=== PATIENT | male | born 1985 | race Caucasian/White ===

== ENCOUNTER 2018-05-30 11:45 | Inpatient (IN) ==
--- NOTE | 2018-05-30 12:11 | ED ---
HPI General Chief Complaint: Overdose Stated Complaint: Poss OD / Psych eval / DBPD Time Seen by Provider: 05/30/18 11:50 History of Present Illness HPI Narrative: This patient is brought in under police Sanabria act. He presumably took an intentional overdose of Seroquel. I am told that he posted an Internet picture of himself holding the bottle of Seroquel and making suicidal overtones. His found him later minimally responsive. She called paramedics. He arrives very sedated. He is not able to provide any useful history or review of systems. Related Data Home Medications Medication Instructions Recorded Confirmed quetiapine [Seroquel] 200 mg PO BID 05/30/18 05/30/18 Allergies Allergy/AdvReac Type Severity Reaction Status Date / Time ketorolac [From Toradol] Allergy Anaphylaxis Verified 05/30/18 11:52 Review of Systems ROS Unobtainable ROS Unobtainable: unobtainable due to mental status PMFSH Social History Social History Substance History: Unable to Obtain Smoking Status: Unknown if ever smoked How Often Do You Have a Drink Containing Alcohol: Unable to Obtain Recent Travel in [facility] within the Last 8 Weeks: No Recent Out of Country Travel within the Last 8 Weeks: No Immunization History Tetanus Immunization: Unable to Assess Hx Influenza Vaccine This Season: Unable to Assess Exam Narrative Exam Narrative: GENERAL: Well-nourished, well-developed patient who is sedated and has decreased responsiveness . SKIN: Focused skin assessment reveals no rash and nodules. Skin is Warm and dry. HEAD: Atraumatic. Normocephalic. EYES: Pupils equal and round. No scleral icterus. No injection or drainage. ENT: No nasal bleeding or discharge. Mucous membranes pink and moist. NECK: Trachea midline. No JVD. CARDIOVASCULAR: Regular rate and rhythm. No murmur appreciated. RESPIRATORY: No accessory muscle use. Clear to auscultation. Breath sounds equal bilaterally. GASTROINTESTINAL: Abdomen soft, non-tender, nondistended. Hepatic and splenic margins not palpable. MUSCULOSKELETAL: No obvious deformities. No clubbing. No cyanosis. No edema. NEUROLOGICAL: Very obtunded. He has a normal gag reflex. He appears to be controlling his airway fine. Impossible to assess motor strength or sensation given his limited participation. He does localize to pain stimuli. PSYCHIATRIC: Impossible to currently assess his mood and affect; insight and judgment poor Course Initial Documented Vital Signs Temperature 98.1 F 05/30/18 11:46 Pulse Rate 80 05/30/18 11:46 Respiratory Rate 12 05/30/18 11:46 Blood Pressure 127/81 05/30/18 11:46 Pulse Oximetry 100 05/30/18 11:46 Last Documented Vital Signs Temperature 98.1 F 05/30/18 11:46 Pulse Rate 66 05/30/18 13:24 Respiratory Rate 14 05/30/18 13:24 Blood Pressure 117/66 05/30/18 13:24 Pulse Oximetry 100 05/30/18 13:24 Critical Care Time Critical Care Time: Yes Total Critical Care Time: 37 Attestation: Aggregate critical care time was 37 minutes. Time to perform other separately billable procedures was not included in the critical care time. My time did not include minutes spent treating any other patients simultaneously or on activities that did not directly contribute to the patient's treatment. The services I provided to this patient were to treat and/or prevent clinically significant deterioration that could result in: Loss of airway, cardiopulmonary arrest, hypoxemic brain injury I provided critical care services requiring my management, as noted below: Chart data review, documentation time, medication orders and management, vital sign assessments/reviewing monitor data, ordering and reviewing lab tests, ordering and interpreting/reviewing x-rays and diagnostic studies, care of the patient and discussion of the patient with the admitting physicians. Medical Decision Making MDM Narrative Medical decision making narrative: IV placed 2 Blood and urine studies sent. Garsia placed. Laboratory monitoring reveals sinus rhythm without ectopy I reviewed his EKG which is normal Vitals are normal but GCS is 10. He has a good gag reflex and is controlling his airway. He is not having any respiratory depression. Saturations are 100% on room air. I am going to closely observe him with frequent rechecks. If his GCS does decrease will consider intubation to protect his airway but at this time it seems okay. He is under Sanabria act so will need psychiatric consultation in the hospital. I am not going to order psych screen now as he clearly cannot provide any useful psychiatric information to the screener. Brain CT is negative I am presuming Seroquel overdose but it could have been multidrug or anything else. There is nobody here to provide any further information. Lab studies are reasonably normal other than mild anemia. Electrolytes are normal. ABG shows no hypercarbia. He is not having respiratory depression. GCS persistent at 10 will require intensive care monitoring but at this point does not need to be intubated. Tylenol and aspirin and alcohol and toxic range and all negative. I reviewed the case in detail with calender wind up tender who will admit Medical Screen Exam Complete: Yes Emergency Medical Condition: Yes Differential Diagnosis Differential Diagnosis: Intentional overdose, suicidal ideation, Tylenol toxicity Medical Records Medical records reviewed: Yes I reviewed the patient's medical records. Lab Data Lab results reviewed: Yes I reviewed the patient's lab results. Result diagrams: 05/30/18 12:03 05/30/18 12:03 Lab Results 05/30/18 05/30/18 05/30/18 Range/Units 12:03 12:03 12:03 WBC 5.3 (4.0-11.0) th/mm3 RBC 3.72 L (4.50-5.90) mil/mm3 Hgb 11.5 L (13.0-17.0) gm/dL Hct 34.6 L (39.0-51.0) % MCV 93.3 (80.0-100.0) fL MCH 30.9 (27.0-34.0) pg MCHC 33.1 (32.0-36.0) % RDW 13.5 (11.6-17.2) % Plt Count 317 (150-450) th/mm3 MPV 10.0 (7.0-11.0) fL Neut % (Auto) 48.3 (16.0-70.0) % Lymph % (Auto) 35.0 (9.0-44.0) % [place] % (Auto) 11.2 H (0.0-8.0) % Eos % (Auto) 4.6 H (0.0-4.0) % Baso % (Auto) 0.9 (0.0-2.0) % Neut # (Auto) 2.5 (1.8-7.7) th/mm3 Lymph # (Auto) 1.8 (1.0-4.8) th/mm3 [place] # (Auto) 0.6 (0.0-0.9) th/mm3 Eos # (Auto) 0.2 (0.0-0.4) th/mm3 Baso # (Auto) 0.0 (0.0-0.2) th/mm3 WBC Differential . Differential Comment Auto diff final Puncture Site Patient Temperature O2 Saturation (90-100) % ABG pH (7.380-7.420) ABG pCO2 (38-42) mmHg ABG pO2 (61-120) mmHg ABG HCO3 (22-26) mmol/L ABG O2 Content (12.0-20.0) Vol % ABG Base Excess (-2-2) mmol/L ABG Methemoglobin (0-2) % Andres Test Hemoglobin (12.0-16.0) G/DL Carboxyhemoglobin (0-4) % Inspired O2 % Critical Value Sodium 144 (136-145) meq/L Potassium 3.6 (3.5-5.1) meq/L Chloride 109 H (98-107) meq/L Carbon Dioxide 25.6 (21.0-32.0) meq/L Anion Gap 9 (5-15) meq/L BUN 12 (7-18) mg/dL Creatinine 1.13 (0.60-1.30) mg/dL Estimated GFR 75 L (>89) mL/min Random Glucose 101 (74-106) mg/dL Calcium 8.5 (8.5-10.1) mg/dL Total Bilirubin 0.6 (0.2-1.0) mg/dL AST 34 (15-37) U/L ALT 32 (12-78) U/L Alkaline Phosphatase 83 (45-117) U/L Total Protein 7.5 (6.4-8.2) g/dL Albumin 3.4 (3.4-5.0) g/dL Salicylates Less than 1.7 L (2.8-20.0) mg/dL Acetaminophen Less than 2.0 L (10.0-30.0) mcg/mL Serum Alcohol Less than 3 (0-5) mg/dL 05/30/18 Range/Units 12:37 WBC (4.0-11.0) th/mm3 RBC (4.50-5.90) mil/mm3 Hgb (13.0-17.0) gm/dL Hct (39.0-51.0) % MCV (80.0-100.0) fL MCH (27.0-34.0) pg MCHC (32.0-36.0) % RDW (11.6-17.2) % Plt Count (150-450) th/mm3 MPV (7.0-11.0) fL Neut % (Auto) (16.0-70.0) % Lymph % (Auto) (9.0-44.0) % [place] % (Auto) (0.0-8.0) % Eos % (Auto) (0.0-4.0) % Baso % (Auto) (0.0-2.0) % Neut # (Auto) (1.8-7.7) th/mm3 Lymph # (Auto) (1.0-4.8) th/mm3 [place] # (Auto) (0.0-0.9) th/mm3 Eos # (Auto) (0.0-0.4) th/mm3 Baso # (Auto) (0.0-0.2) th/mm3 WBC Differential Differential Comment Puncture Site Left radial Patient Temperature 98.6 O2 Saturation 95 (90-100) % ABG pH 7.43 H (7.380-7.420) ABG pCO2 37 L (38-42) mmHg ABG pO2 107 (61-120) mmHg ABG HCO3 24 (22-26) mmol/L ABG O2 Content 15.4 (12.0-20.0) Vol % ABG Base Excess -0.2 (-2-2) mmol/L ABG Methemoglobin 0.9 (0-2) % Andres Test Present Hemoglobin 11.4 L (12.0-16.0) G/DL Carboxyhemoglobin 2.1 (0-4) % Inspired O2 21 % Critical Value No Sodium (136-145) meq/L Potassium (3.5-5.1) meq/L Chloride (98-107) meq/L Carbon Dioxide (21.0-32.0) meq/L Anion Gap (5-15) meq/L BUN (7-18) mg/dL Creatinine (0.60-1.30) mg/dL Estimated GFR (>89) mL/min Random Glucose (74-106) mg/dL Calcium (8.5-10.1) mg/dL Total Bilirubin (0.2-1.0) mg/dL AST (15-37) U/L ALT (12-78) U/L Alkaline Phosphatase (45-117) U/L Total Protein (6.4-8.2) g/dL Albumin (3.4-5.0) g/dL Salicylates (2.8-20.0) mg/dL Acetaminophen (10.0-30.0) mcg/mL Serum Alcohol (0-5) mg/dL Imaging Data Attestation: I personally reviewed and interpreted this imaging study as follows : Radiologist's impression: Head CT 05/30/18 12:00 CONCLUSION: 1. Negative CT Head non contrast. . Discharge Plan Discharge Disposition Patient Disposition: 30 Still Patient Discharge Details Diagnosis: Drug overdose, Suicide attempt by drug ingestion Physicians Team ED Provider: Oneal Reyes Primary Care Provider: UNKNOWN, Rxs /Orders / Referrals /Forms Prescriptions: No Action quetiapine [Seroquel] 200 mg Tablet 200 mg PO BID RF: 0 Discharge Interventions Interventions: Vital Signs Last Done: 05/30/18 13:24 Status ED Status: With Doctor
[2018-05-30 12:16] LABS: Baso % (Auto) 0.9 % (0.0-2.0); Eos # (Auto) 0.2 th/mm3 (0.0-0.4); Eos % (Auto) 4.6 % (0.0-4.0); Hematocrit 34.6 % (39.0-51.0); Hemoglobin 11.5 gm/dL (13.0-17.0); Lymph # (Auto) 1.8 th/mm3 (1.0-4.8); Mean Corpuscular HGB Conc 33.1 % (32.0-36.0); Mean Corpuscular Hemoglobin 30.9 pg (27.0-34.0); Mean Corpuscular Volume 93.3 fL (80.0-100.0); Mono # (Auto) 0.6 th/mm3 (0.0-0.9); Mono % (Auto) 11.2 % (0.0-8.0); Neut # (Auto) 2.5 th/mm3 (1.8-7.7); Neut % (Auto) 48.3 % (16.0-70.0); Platelet Count 317 th/mm3 (150-450); Red Blood Count 3.72 mil/mm3 (4.50-5.90); Red Cell Distribution Width 13.5 % (11.6-17.2); White Blood Count 5.3 th/mm3 (4.0-11.0)
[2018-05-30 12:34] LABS: Alkaline Phosphatase 83 U/L (45-117); Total Protein 7.5 g/dL (6.4-8.2)
--- NOTE | 2018-05-30 12:36 | CT ---
EXAM DATE: 05/30/2018 12:32 PM EDT AGE/SEX: 33 years / Male INDICATIONS: Altered mental status. CLINICAL DATA: This is the patient's initial encounter. Patient reports that signs and symptoms have been present for 1 day and indicates a pain score of Nonresponsive. MEDICAL/SURGICAL HISTORY: None. None. RADIATION DOSE: 56.35 CTDI (mGy) COMPARISON: none. TECHNIQUE: CT of the head without contrast. Using automated exposure control and adjustment of the mA and/or kV according to patient size, radiation dose was kept as low as reasonably achievable to ob tain optimal diagnostic quality images. DICOM format image data is available electronically for revi ew and comparison. FINDINGS: Cerebrum: The ventricles are normal for age. No evidence of midline shift, mass lesion, hemorrhage or acute infarction. No extraaxial fluid collections are seen. Posterior Fossa: The cerebellum and brainstem are intact. The 4th ventricle is midline. The cerebe llopontine angle is unremarkable. Extracranial: The visualized portion of the orbits is intact. Skull: The calvaria is intact. No evidence of skull fracture. CONCLUSION: 1. Negative CT Head non contrast. . Electronically signed by: Bneji Allen MD 05/30/2018 12:35 PM EDT
[2018-05-30 12:46] LABS: ABG Base Excess -0.2 mmol/L (-2-2); ABG PCO2 37 mmHg (38-42); ABG PO2 107 mmHg (61-120)
[2018-05-30 13:10] LABS: Alanine Aminotransferase 32 U/L (12-78); Albumin 3.4 g/dL (3.4-5.0); Anion Gap 9 meq/L (5-15); Aspartate Aminotransferase 34 U/L (15-37); Blood Urea Nitrogen 12 mg/dL (7-18); Calcium 8.5 mg/dL (8.5-10.1); Carbon Dioxide 25.6 meq/L (21.0-32.0); Chloride 109 meq/L (98-107); Glomerular Filtration Rate 75 mL/min (>89); Glucose,Random 101 mg/dL (74-106); Sodium 144 meq/L (136-145)
[2018-05-30 13:11] LABS: Potassium 3.6 meq/L (3.5-5.1)
[2018-05-30] MEDS ORDERED: Bisacodyl 10 MG Supp RECTAL PRN (14:19)
[2018-05-30] MEDS ORDERED: Acetaminophen 325 MG Tablet PO PRN (14:19)
[2018-05-30] MEDS ORDERED: Dextrose 50% in Water 50 ML Vial IV.PUSH PRN (14:22)
[2018-05-30] MEDS ORDERED: Potassium Chlor 40 mEq Premix 40 MEQ/100 ML PIGGYBACK IV.SIG PRN ×2 (14:22)
[2018-05-30] MEDS ORDERED: Sodium Phosphate Inj 30 MMOL in Sodium Chlor 0.9% Inj 250 ML IV.SIG PRN (14:22)
[2018-05-30] MEDS ORDERED: Potassium Chloride 25 MEQ Effervescent Tablet PO PRN (14:22)
[2018-05-30] MEDS ORDERED: Potassium Phosphate Inj 30 MMOL in Sodium Chlor 0.9% Inj 250 ML IV.SIG PRN (14:22)
[2018-05-30] MEDS ORDERED: Magnesium Sulfate Inj 2 GM in Sodium Chlor 0.9% Inj 96 ML IV.SIG PRN (14:22)
[2018-05-30] MEDS ORDERED: Potassium Chlor 20 mEq Premix 20 MEQ/100 ML PIGGYBACK IV.SIG PRN ×2 (14:22)
[2018-05-30] MEDS ORDERED: Magnesium Sulfate Inj 4 GM in Sodium Chlor 0.9% Inj 92 ML IV.SIG PRN (14:22)
[2018-05-30] MEDS ORDERED: Magnesium Oxide 400 MG Tablet PO PRN (14:22)
[2018-05-30] MEDS ORDERED: Potassium Phosphate 500 MG Soluble Tablet PO PRN ×2 (14:22)
--- NOTE | 2018-05-30 14:45 | P.HPCC ---
History of Present Illness Service: Critical care medicine Primary Care Physician: UNKNOWN Chief Complaint: Suicide ideation/Quetiapine overdose History of Present Illness: This is a 33-year-old male. Date of admission 05/30/2018. Past medical history includes migraine headache, chronic low back pain/sciatica, history of benzodiazepine use and history of IV drug use 2008. He is brought in to [facility] ED under police [place] act. He presumably took an intentional overdose of Quetiapine. ED physician was told that he posted an Internet picture of himself holding the bottle of Seroquel and making suicidal overtones. His found him later minimally responsive. She called paramedics. He arrives very sedated. He is not able to provide any useful history or review of systems with a GCS of 10 CT brain revealed no acute intracranial findings. Patient has a gag and protecting airway. Based on laboratory essentially negative. Urine drug screen currently pending. We are asked to admit the patient observation. He is under [place] act and psychiatry consult when appropriate Review of Systems unobtainable due to mental status PMFSH - History History Provided By: Training Analyst / EMT - Medical History Medical History: Medical History (Last Updated 05/30/18 @ 14:42 by Ge Burton MD) Bipolar 1 disorder Chronic low back pain History of migraine headaches Schizo affective schizophrenia Surgical history unknown - Surgical History Surgical History: Surgical History (Last Updated 05/30/18 @ 14:42 by Ge Burton MD) Stress fracture, right finger(s), subsequent encounter for fracture with routine healing (Acute) - Family History Family History: Family History (Last Updated 05/30/18 @ 14:43 by Ge Burton MD) Other Unknown family medical history - Social History I have reviewed the patient's Social History: Yes - Tobacco History Smoking Status: Former smoker - Alcohol History How Often Do You Have a Drink Containing Alcohol: Unable to Obtain - Substance Use History Substance History: Unable to Obtain - Travel History Recent Travel in the [place] Within the Last 8 Weeks: No Recent Travel Out of the Country Within the Last 8 Weeks: No - Immunization History Tetanus Immunization: Unable to Assess Hx Influenza Vaccine This Season: Unable to Assess Medications and Allergies Active Medications: Active Medications Acetaminophen (Tylenol) 650 mg PO Q6H PRN PRN Reason: PAIN 1-10 AND/OR FEVER >101F Al Hydroxide/Mg Hydroxide (Milk Of Magnesia Liq) 30 ml PO Q12H PRN PRN Reason: Mild Constipation Albuterol (Duoneb Neb (Prn)) 1 ampul NEB Q2HR NEB PRN PRN Reason: WHEEZING Bisacodyl (Dulcolax Supp) 10 mg RECTAL DAILY PRN PRN Reason: SEVERE CONSITIPATION Chlorhexidine Gluconate (Chlorhexidine 2% Cloth) 3 pack TOPICAL DAILY@0400 DEMETRIA Stop: 06/05/18 03:59 Chlorhexidine Gluconate (Chlorhexidine 2% Cloth) 3 pack TOPICAL DAILY@0400 PRN PRN Reason: Extra cloth needed Stop: 06/05/18 03:59 Dextrose (D50w Vial) 50 ml IV.PUSH UNSCH PRN PRN Reason: PER HYPOGLYCEMIA PROTOCOL Enoxaparin Sodium (Lovenox Inj) 40 mg SQ Q24H DEMETRIA Glucagon (Glucagon Inj) 1 mg OTHER UNSCH PRN PRN Reason: for Hypoglycemia Protocol Potassium Chloride/Sodium Chloride (Ns + Kcl 20 Meq Inj) 1,000 mls @ 100 mls/ hr IV.CONT .Q10H DEMETRIA Magnesium Sulfate Inj 4 gm/ (Sodium Chloride) 100 mls @ 50 mls/hr IV.SIG UNSCH PRN PRN Reason: For Magnesium 0.9 - 1.1 mg/dL Magnesium Sulfate Inj 2 gm/ (Sodium Chloride) 100 mls @ 50 mls/hr IV.SIG UNSCH PRN PRN Reason: For Magnesium 1.2 - 1.6 mg/dL Potassium Chloride (Kcl 40 Meq Premix Inj) 40 meq in 100 mls @ 25 mls/hr IV.SIG Q2H PRN PRN Reason: For Potassium 2.8 - 3.2 mEq/L Potassium Chloride (Kcl 20 Meq Premix Inj) 20 meq in 100 mls @ 50 mls/hr IV.SIG Q2H PRN PRN Reason: For Potassium 3.3 - 3.5 mEq/L Potassium Chloride (Kcl 20 Meq Premix Inj) 20 meq in 100 mls @ 50 mls/hr IV.SIG Q2H PRN PRN Reason: For Potassium 2.8 - 3.2 mEq/L Potassium Phosphate 30 mmol/ (Sodium Chloride) 260 mls @ 42 mls/hr IV.SIG UNSCH PRN PRN Reason: SEE LABEL COMMENTS Sodium Phosphate 30 mmol/ (Sodium Chloride) 260 mls @ 42 mls/hr IV.SIG UNSCH PRN PRN Reason: For Phosphorus < 2.5 mg/dL Potassium Chloride (Kcl 40 Meq Premix Inj) 40 meq in 100 mls @ 25 mls/hr IV.SIG UNSCH PRN PRN Reason: For Potassium 3.3 - 3.5 mEq/L Insulin Aspart (Novolog Insulin Correctional Sugar Inj) 0 unit SQ Q6HR DEMETRIA; Protocol Lactulose (Lactulose Liq) 30 ml PO DAILY PRN PRN Reason: SEVERE CONSITIPATION Magnesium Oxide (Mag-Ox) 800 mg PO UNSCH PRN PRN Reason: For Magnesium 1.2 - 1.6 mg/dL Ondansetron HCl (Zofran Inj) 4 mg IV.PUSH Q6H PRN PRN Reason: NAUSEA OR VOMITING Pantoprazole Sodium (Protonix Inj) 40 mg IV.PUSH DAILY DEMETRIA Potassium Bicarb/Potassium Chloride (K-Lyte Cl Eff) 50 meq PO UNSCH PRN PRN Reason: For Potassium 3.3 - 3.5 mEq/L Potassium Phosphate (K-Phos Original) 2,000 mg PO Q4H PRN PRN Reason: Phosphorus Less Than 2.5 mg/dL Potassium Phosphate (K-Phos Original) 2,000 mg PO UNSCH PRN PRN Reason: SEE LABEL COMMENTS Senna/Docusate Sodium (Kim-Colace) 1 tab PO BID [facility] Sennosides (Senokot) 17.2 mg PO Q12H PRN PRN Reason: Moderate Constipation Sodium Chloride (Ns Flush) 2 ml IV.FLUSH BID DEMETRIA Sodium Chloride (Ns Flush) 2 ml IV.FLUSH UNSCH PRN PRN Reason: FLUSH AFTER USING IV ACCESS Allergies Allergy/AdvReac Type Severity Reaction Status Date / Time ketorolac [From Toradol] Allergy Anaphylaxis Verified 05/30/18 11:52 Home Medications Medication Instructions Recorded Confirmed Type quetiapine [Seroquel] 200 mg PO BID 05/30/18 05/30/18 History Results - Labs CBC & Chem 7: 05/30/18 12:03 05/30/18 12:03 Labs: Short CBC 05/30/18 Range/Units 12:03 WBC 5.3 (4.0-11.0) th/mm3 Hgb 11.5 L (13.0-17.0) gm/dL Hct 34.6 L (39.0-51.0) % Plt Count 317 (150-450) th/mm3 BMP 05/30/18 12:03 Sodium 144 Potassium 3.6 Chloride 109 H Carbon Dioxide 25.6 BUN 12 Creatinine 1.13 Calcium 8.5 Liver Function 05/30/18 Range/Units 12:03 Total Bilirubin 0.6 (0.2-1.0) mg/dL AST 34 (15-37) U/L ALT 32 (12-78) U/L Alkaline Phosphatase 83 (45-117) U/L Albumin 3.4 (3.4-5.0) g/dL - Imaging Impressions Head CT 05/30/18 12:00 CONCLUSION: 1. Negative CT Head non contrast. . Exam Vital signs: Vital Signs 05/30/18 11:46 05/30/18 11:54 05/30/18 12:14 Temperature 98.1 F Pulse Rate 80 80 Respiratory Rate 12 12 Blood Pressure 127/81 Pulse Oximetry 100 98 05/30/18 13:24 05/30/18 14:26 Temperature Pulse Rate 66 Respiratory Rate 14 Blood Pressure 117/66 Pulse Oximetry 100 100 Intake & Output 05/29/18 05/30/18 05/30/18 18:59 06:59 18:59 Weight 54.431 kg - Constitutional no acute distress - Routine HEENT Exam Head: Present: normocephalic, atraumatic Eye: Present: EOMI, PERRL ENT: Present: mucous membranes moist - Routine Neck Exam Present: supple. Absent: JVD, carotid bruit - Routine Chest/Breast/Axilla Exam Chest wall: Absent: tenderness Breast: Absent: tenderness Axillae: Absent: lymphadenopathy - Routine Respiratory Exam Present: CTA bilaterally. Absent: rhonchi, stridor, wheezes, crackles - Routine Cardiovascular Exam Present: RRR, S1, S2. Absent: murmur - Routine Abdominal Exam Present: soft, normoactive bowel sounds. Absent: tenderness - Routine Extremities Exam Absent: cyanosis, clubbing - Routine Skin Exam Present: intact - Routine Neurological Exam Present: CN II-XII intact. Absent: alert, oriented X3, sensory deficit, motor deficit Septic Shock Reassessment Septic shock perfusion: reassessment completed Caprini VTE Risk Assessment Caprini VTE Risk Assessment: Moderate/High Risk (score >= 2) Caprini Risk Assessment Model: Point Value = 1 Point Value = 2 Point Value = 3 Point Value = 5 Age 41-60 Minor surgery BMI > 25 kg/m2 Swollen legs Varicose veins or History of unexplained or recurrent spontaneous Oral contraceptives or hormone replacement Sepsis (< 1 month) Serious lung disease, including pneumonia (< 1 month) Abnormal pulmonary function Acute myocardial infarction Congestive heart failure (< 1 month) History of inflammatory bowel disease Medical patient at bed rest Age 61-74 Arthroscopic surgery Major open surgery (> 45 min) Laparoscopic surgery (> 45 min) Malignancy Confined to bed (> 72 hours) Immobilizing plaster cast Central venous access Age >= 75 History of VTE Family history of VTE Factor V Leiden Prothrombin [id number] Lupus anticoagulant Anticardiolipin antibodies Elevated serum homocysteine Heparin-induced thrombocytopenia Other congenital or acquired thrombophilia Stroke (< 1 month) Elective arthroplasty Hip, pelvis, or leg fracture Acute spinal cord injury (< 1 month) Prophylaxis Regimen: Total Risk Factor Score Risk Level Prophylaxis Regimen 0-1 Low Early ambulation 2 Moderate Order ONE of the following: *Sequential Compression Device (SCD) *Heparin 5000 units SQ BID 3-4 Higher Order ONE of the following medications: *Heparin 5000 units SQ TID *Enoxaparin/Lovenox 40 mg SQ daily (WT < 150 kg, CrCl > 30 mL/min) *Enoxaparin/Lovenox 30 mg SQ daily (WT < 150 kg, CrCl > 10-29 mL/min) *Enoxaparin/Lovenox 30 mg SQ BID (WT < 150 kg, CrCl > 30 mL/min) AND/OR *Sequential Compression Device (SCD) 5 or more Highest Order ONE of the following medications: *Heparin 5000 units SQ TID (Preferred with Epidurals) *Enoxaparin/Lovenox 40 mg SQ daily (WT < 150 kg, CrCl > 30 mL/min) *Enoxaparin/Lovenox 30 mg SQ daily (WT < 150 kg, CrCl > 10-29 mL/min) *Enoxaparin/Lovenox 30 mg SQ BID (WT < 150 kg, CrCl > 30 mL/min) AND *Sequential Compression Device (SCD) Assessment and Plan - Assessment and Plan Plan: Neuro/Psych: Quetiapine overdose History of schizophrenia/bipolar type I History of migraine headache [place]ria act and enforced and psychiatry consultation with appropriate Acetaminophen 650 mg p.o. every 6 hours as needed fever Hold quetiapine 200 mg twice daily/home medication CV: Currently on normal saline with 20 mEq of KCl at 84 cc an hour Not requiring vasopressors and/or antihypertensives Resp: History of prior tobaccoism Nasal cannula to maintain saturations greater than equal 90% Incentive spirometry while awake Albuterol aerosols every 2 hours as needed dyspnea Head of bed at 30 Strict aspiration precautions GI: Advance diet as tolerated Famotidine for GI prophylaxis Docusate sodium/senna 1 tablet twice daily for bowel regimen : Straight cath as needed Endo: Sliding scale insulin Accu-Cheks to maintain euglycemia/aspart insulin low regimen every 6 hours Check TSH Renal: Creatinine currently within normal limits Monitor urine output Accurate i's and O's Heme: Normocytic anemia Monitor CBC daily. Follow trends ID: Monitor for signs and symptomatology of infection MSK: History of chronic low back pain/sciatica Physical therapy evaluate and treat FEN: Replace electrolytes as clinically indicated Access: -Utilize peripheral IV. Central line if indicated Prophylaxis -GI -pantoprazole -DVT -CT/enoxaparin 3 H&P Code Status: Full code Discussed Condition With: Dr. Leon/ED physician. Care plan discussed and all questions answered. No family available.
[2018-05-30 16:05] LABS: Amphetamine Screen,Urine Pos (Neg); Barbiturate Screen,Urine Neg (Neg); Cannabinoid Screen,Urine Neg (Neg); Cocaine Screen,Urine Pos (Neg)
[2018-05-30 16:18] LABS: Opiate Screen,Urine Neg (Neg)
[2018-05-30] MEDS: Enoxaparin Inj 40 MG/0.4 ML Syringe SQ SCH (16:22)
[2018-05-30] MEDS: Multivitamin Inj 10 ML, Thiamine Inj 100 MG, Folic Acid Inj 1 MG in Sodium Chlor 0.9% I... IV.SIG SCH (17:35)
[2018-05-30] MEDS: Insulin NovoLOG Aspart Correctional Sugar Inj SQ SCH (17:35)
[2018-05-30] MEDS: Famotidine PF Inj 20 MG/2 ML Vial IV.PUSH SCH (20:01)
[2018-05-30] MEDS: Senna/Docusate Sodium 8.6/50 MG Tablet PO SCH (20:02)
[2018-05-31] MEDS: Insulin NovoLOG Aspart Correctional Sugar Inj SQ SCH ×4 (00:19→17:03)
[2018-05-31] MEDS ORDERED: Chlorhexidine Gluconate 2% 1 Pack (2 Cloths) TOPICAL PRN (04:00)
[2018-05-31] MEDS: Chlorhexidine Gluconate 2% 1 Pack (2 Cloths) TOPICAL SCH (04:55)
[2018-05-31 07:02] LABS: Baso # (Auto) 0.1 th/mm3 (0.0-0.2); Baso % (Auto) 1.1 % (0.0-2.0); Eos # (Auto) 0.2 th/mm3 (0.0-0.4); Eos % (Auto) 3.9 % (0.0-4.0); Hematocrit 37.9 % (39.0-51.0); Hemoglobin 12.8 gm/dL (13.0-17.0); Lymph # (Auto) 1.4 th/mm3 (1.0-4.8); Mean Corpuscular HGB Conc 33.8 % (32.0-36.0); Mean Corpuscular Hemoglobin 31.6 pg (27.0-34.0); Mean Corpuscular Volume 93.4 fL (80.0-100.0); Mean Platelet Volume 9.5 fL (7.0-11.0); Mono # (Auto) 0.5 th/mm3 (0.0-0.9); Mono % (Auto) 7.7 % (0.0-8.0); Neut % (Auto) 64.3 % (16.0-70.0); Platelet Count 243 th/mm3 (150-450); Red Blood Count 4.06 mil/mm3 (4.50-5.90); Red Cell Distribution Width 13.5 % (11.6-17.2); White Blood Count 6.2 th/mm3 (4.0-11.0)
[2018-05-31 07:33] LABS: Activated Partial Thrombo Time 25.9 sec (24.3-30.1); Prothrombin Time 10.6 sec (9.8-11.6)
--- NOTE | 2018-05-31 07:34 | P.PNCC ---
Subjective Subjective Remarks/Hospital Course: This is a 33-year-old male. Date of admission 05/30/2018. Past medical history includes migraine headache, chronic low back pain/sciatica, history of benzodiazepine use and history of IV drug use 2008. He is brought in to [facility] ED under police San[place]ria act. He presumably took an intentional overdose of Quetiapine. ED physician was told that he posted an Internet picture of himself holding the bottle of Seroquel and making suicidal overtones. His found him later minimally responsive. She called paramedics. He arrives very sedated. He is not able to provide any useful history or review of systems with a GCS of 10 CT brain revealed no acute intracranial findings. Patient has a gag and protecting airway. Based on laboratory essentially negative. Urine drug screen currently pending. We are asked to admit the patient observation. He is under [place] act and psychiatry consult when appropriate SUBJ 05/31: Patient seen and examined sleeping on his bed wakes up easily follows commands. Do not give much history but denies suicidal ideation now. No EKG changes noted Objective Vital Signs / I&O: Vital Signs 05/30/18 11:46 05/30/18 11:54 05/30/18 12:14 Temperature 98.1 F Pulse Rate 80 80 Respiratory Rate 12 12 Blood Pressure 127/81 Pulse Oximetry 100 98 05/30/18 13:24 05/30/18 14:26 05/30/18 15:00 Temperature Pulse Rate 66 59 L Respiratory Rate 14 12 Blood Pressure 117/66 118/73 Pulse Oximetry 100 100 100 05/30/18 16:04 05/30/18 16:25 05/30/18 18:00 Temperature 97.8 F 98.2 F Pulse Rate 73 75 62 Respiratory Rate 19 18 16 Blood Pressure 123/82 120/84 117/68 Pulse Oximetry 100 100 100 05/30/18 19:00 05/30/18 20:00 05/30/18 21:00 Temperature 97.5 F L Pulse Rate 62 66 66 Respiratory Rate 17 18 16 Blood Pressure 123/74 150/91 H 123/76 Pulse Oximetry 100 100 100 05/30/18 21:53 05/30/18 22:00 05/30/18 23:00 Temperature Pulse Rate 65 64 Respiratory Rate 17 16 Blood Pressure 148/80 H 111/84 Pulse Oximetry 100 100 100 05/31/18 00:00 05/31/18 01:00 05/31/18 02:00 Temperature 99.1 F Pulse Rate 71 69 70 Respiratory Rate 18 16 15 Blood Pressure 136/78 131/70 147/93 H Pulse Oximetry 100 100 98 05/31/18 03:00 05/31/18 04:00 05/31/18 05:00 Temperature 98.6 F Pulse Rate 83 84 70 Respiratory Rate 17 22 22 Blood Pressure 140/81 142/82 H 138/87 Pulse Oximetry 100 100 100 05/31/18 06:00 05/31/18 07:00 Temperature 97.1 F L Pulse Rate 59 L 60 Respiratory Rate 18 18 Blood Pressure 121/81 124/84 Pulse Oximetry 100 100 Intake & Output 05/30/18 05/31/18 05/31/18 18:59 06:59 18:59 Intake Total 2991.2 / 2991.2 Output Total 300 / 300 400 / 400 Balance -300 / -300 2591.2 / 2591.2 Weight 54.431 kg Intake: IV 2511.2 / 2511.2 NS + KCl 20 mEq Inj 1,000 ML @ 1000 / 1000 100 mls/hr IV.CONT .Q10H [facility] Rx #:[id number] LR 1000 mL Inj 1,000 ML @ Wide 1000 / 1000 Open IV.SIG BOLUS ONE Rx#: [id number] MVI-12 Inj 10 ML Thiamine Inj 511.2 / 511.2 100 MG Folvite Inj 1 MG In NS Inj 500 ML @ 125 mls/hr IV.SIG Q24H [facility] Rx#:[id number] Oral 480 / 480 Output: Urine 300 / 300 400 / 400 Other: # Voids 1 # Bowel Movements 0 Result Diagrams: 05/31/18 06:10 05/30/18 12:03 Objective Remarks: - Constitutional no acute distress - Routine HEENT Exam Head: normocephalic, atraumatic Eye: EOMI, PERRL ENT: mucous membranes moist - Routine Neck Exam supple. No JVD, carotid bruit - Routine Chest Exam Chest wall: Absent: tenderness - Routine Respiratory Exam CTA bilaterally. No rhonchi, stridor, wheezes, crackles - Routine Cardiovascular Exam RRR, S1, S2. No murmur - Routine Abdominal Exam Soft, normoactive bowel sounds. Absent tenderness - Routine Extremities Exam No cyanosis, clubbing - Routine Neurological Exam CN II-XII intact. Alert, oriented X3, No sensory deficit, motor deficit Assessment and Plan - Assessment and Plan Plan: Neuro/Psych: Quetiapine overdose History of schizophrenia/bipolar type I History of migraine headache San[place]ria act and enforced and psychiatry consultation placed today Acetaminophen 650 mg p.o. every 6 hours as needed fever Holding quetiapine 200 mg twice daily/home medication-await psych recommendations CV: Currently on normal saline with 20 mEq of KCl at 84 cc an hour Not requiring vasopressors and/or antihypertensives Monitor serial EKGs Resp: History of prior tobaccoism Nasal cannula to maintain saturations greater than equal 90% Incentive spirometry while awake Albuterol aerosols every 2 hours as needed dyspnea Head of bed at 30. Strict aspiration precautions GI: Advance diet as tolerated Famotidine for GI prophylaxis Docusate sodium/senna 1 tablet twice daily for bowel regimen Endo: Sliding scale insulin Accu-Cheks to maintain euglycemia/aspart insulin low regimen every 6 hours Renal: Creatinine currently within normal limits Monitor urine output Accurate i's and O's Heme: Normocytic anemia Monitor CBC daily. Follow trends ID: Monitor for signs and symptomatology of infection FEN: Replace electrolytes as clinically indicated Access: -Utilize peripheral IV. Central line if indicated Prophylaxis -GI -pantoprazole -DVT -enoxaparin Level 2 Consult hospitalist to assume care. Transfer to [facility] with telemetry. Code Status: Full Discussed Condition With: Patient and bedside RN
[2018-05-31 08:07] LABS: Alanine Aminotransferase 26 U/L (12-78); Albumin 2.7 g/dL (3.4-5.0); Alkaline Phosphatase 75 U/L (45-117); Anion Gap 6 meq/L (5-15); Aspartate Aminotransferase 25 U/L (15-37); Blood Urea Nitrogen 9 mg/dL (7-18); Calcium 8.1 mg/dL (8.5-10.1); Carbon Dioxide 29.1 meq/L (21.0-32.0); Chloride 111 meq/L (98-107); Glomerular Filtration Rate 80 mL/min (>89); Glucose,Random 60 mg/dL (74-106); Magnesium 2.1 mg/dL (1.5-2.5); Phosphorus 2.4 mg/dL (2.5-4.9); Potassium 3.6 meq/L (3.5-5.1); Sodium 146 meq/L (136-145); Thyroid Stimulating Hormone 0.297 uIU/mL (0.358-3.740); Total Protein 6.2 g/dL (6.4-8.2)
[2018-05-31] MEDS ORDERED: Pantoprazole Inj 40 MG Vial IV.PUSH SCH (09:00)
[2018-05-31] MEDS: Famotidine PF Inj 20 MG/2 ML Vial IV.PUSH SCH ×2 (09:26→22:01)
[2018-05-31] MEDS: Senna/Docusate Sodium 8.6/50 MG Tablet PO SCH ×2 (09:26→22:01)
--- NOTE | 2018-05-31 13:53 | P.CONPSY ---
Provisional Diagnosis Admission Date: May 30, 2018 14:39 Dante I.: Schizophrenia,r/o substance-induced psychosis, cocaine and amphetamines use disorde History of Present Illness Service: Critical care Primary Care Provider: UNKNOWN Chief Complaint: Suicide ideation/Quetiapine overdose History of Present Illness: The patient is a 33-year-old man, domiciled in [facility] with his and 10 year-old son, unemployed, supported by [facility], first time at [facility] , unknown for the psychiatric service, with an extensive psychiatric history of schizophrenia diagnosed at the age of 28, cocaine and methamphetamines use disorder, he has history of IV drug use in the past, 2 previous psychiatric admissions, the last hospitalization was 3 years ago in [place], one previous suicide attempt, the patient is on Seroquel 800 mg, lithium 200 mg twice daily, BuSpar 15 mg 3 times daily, he does not have a prescriber in [facility], significant medical history of migraine and back pain, admitted on 05/30/2018. He was brought in to [facility] ED under police Sanabria act. He presumably took an intentional overdose of Quetiapine. ED physician was told that he posted an Internet picture of himself holding the bottle of Seroquel and making suicidal overtones. His found him later minimally responsive. She called paramedics. He arrives very sedated. He is not able to provide any useful history or review of systems with a GCS of 10. CT brain revealed no acute intracranial findings. Consulted to psychiatry to address suicidal attempt. Chart reviewed. My psychiatric evaluation the patient is calm, superficially cooperative, kind of guarded. The patient reports that he has been quite depressed in the last weeks. He has been having problems with his . He says that yesterday he wanted to make a point to her "I wanted to be quite expressive, and I wanted her to understand my point". The patient is a little bit disorganized, quite inappropriate and oddly related. He reports that he is hearing voices, "I always hear voices", but he refused to share the content of his perceptual disturbances. The patient is guarded and possibly paranoid. He reports that he has not been taking his medications, "because I do not have a psychiatrist here in [facility]" he has been treating his psychosis with "cocaine and methamphetamines." PPHx: schizophrenia diagnosed at the age of 28, cocaine and methamphetamines use disorder, he has history of IV drug use in the past, 2 previous psychiatric admissions, the last hospitalization was 3 years ago in [place], one previous suicide attempt, the patient is on Seroquel 800 mg, lithium 200 mg twice daily, BuSpar 15 mg 3 times daily, PPHx: Lower back pain, migraine Family Hx: His mother has schizophrenia Substance Hx: Patient reports daily use of cocaine and amphetamines Social Hx: The patient was born and raised in [place], he lives in the total his and 10 years old boy, unemployed, supported by [employer], his highest level of education is 12 grade Review of Systems Psychiatric: Reports abnormal sleep pattern, Reports depression, Reports irritability, Reports mood swings, Reports paranoia, Reports thoughts of hurting /killing yourself, Reports other PMFSH - History History Provided By: Power Shovel Mechanic / EMT - Medical History Medical History: Medical History (Last Reviewed 05/31/18 @ 08:22 by Merissa Joy Preschool Aide, PACKING CLERK) Bipolar 1 disorder Chronic low back pain History of migraine headaches Schizo affective schizophrenia Surgical history unknown - Surgical History Surgical History: Surgical History (Last Reviewed 05/31/18 @ 08:22 by Ian Raymond) Stress fracture, right finger(s), subsequent encounter for fracture with routine healing (Acute) - Family History Family History: Family History (Last Updated 05/30/18 @ 14:43 by Ge Burton MD) Other Unknown family medical history - Tobacco History Smoking Status: Former smoker - Alcohol History How Often Do You Have a Drink Containing Alcohol: Unable to Obtain - Substance Use History Substance History: Unable to Obtain - Travel History Recent Travel in the [place] Within the Last 8 Weeks: No Recent Travel Out of the Country Within the Last 8 Weeks: No - Immunization History Tetanus Immunization: Unable to Assess Hx Influenza Vaccine This Season: Unable to Assess Medications and Allergies Active Medications: Active Medications Acetaminophen (Tylenol) 650 mg PO Q6H PRN PRN Reason: PAIN 1-10 AND/OR FEVER >101F Al Hydroxide/Mg Hydroxide (Milk Of Magnesia Liq) 30 ml PO Q12H PRN PRN Reason: Mild Constipation Albuterol (Duoneb Neb (Prn)) 1 ampul NEB Q2HR NEB PRN PRN Reason: WHEEZING Bisacodyl (Dulcolax Supp) 10 mg RECTAL DAILY PRN PRN Reason: SEVERE CONSITIPATION Chlorhexidine Gluconate (Chlorhexidine 2% Cloth) 3 pack TOPICAL DAILY@0400 [facility] Stop: 06/05/18 03:59 Last Admin: 05/31/18 04:55 Dose: 3 pack Chlorhexidine Gluconate (Chlorhexidine 2% Cloth) 3 pack TOPICAL DAILY@0400 PRN PRN Reason: Extra cloth needed Stop: 06/05/18 03:59 Dextrose (D50w Vial) 50 ml IV.PUSH UNSCH PRN PRN Reason: PER HYPOGLYCEMIA PROTOCOL Last Admin: 05/31/18 00:23 Dose: 50 ml Enoxaparin Sodium (Lovenox Inj) 40 mg SQ Q24H [facility] Last Admin: 05/30/18 16:22 Dose: 40 mg Famotidine (Pepcid Pf Inj) 20 mg IV.PUSH Q12HR [facility] Last Admin: 05/31/18 09:26 Dose: 20 mg Glucagon (Glucagon Inj) 1 mg OTHER UNSCH PRN PRN Reason: for Hypoglycemia Protocol Potassium Chloride/Sodium Chloride (Ns + Kcl 20 Meq Inj) 1,000 mls @ 100 mls/ hr IV.CONT .Q10H [facility] Last Admin: 05/31/18 11:50 Dose: 100 mls/hr Magnesium Sulfate Inj 4 gm/ (Sodium Chloride) 100 mls @ 50 mls/hr IV.SIG UNSCH PRN PRN Reason: For Magnesium 0.9 - 1.1 mg/dL Magnesium Sulfate Inj 2 gm/ (Sodium Chloride) 100 mls @ 50 mls/hr IV.SIG UNSCH PRN PRN Reason: For Magnesium 1.2 - 1.6 mg/dL Potassium Chloride (Kcl 40 Meq Premix Inj) 40 meq in 100 mls @ 25 mls/hr IV.SIG Q2H PRN PRN Reason: For Potassium 2.8 - 3.2 mEq/L Potassium Chloride (Kcl 20 Meq Premix Inj) 20 meq in 100 mls @ 50 mls/hr IV.SIG Q2H PRN PRN Reason: For Potassium 3.3 - 3.5 mEq/L Potassium Chloride (Kcl 20 Meq Premix Inj) 20 meq in 100 mls @ 50 mls/hr IV.SIG Q2H PRN PRN Reason: For Potassium 2.8 - 3.2 mEq/L Potassium Phosphate 30 mmol/ (Sodium Chloride) 260 mls @ 42 mls/hr IV.SIG UNSCH PRN PRN Reason: SEE LABEL COMMENTS Sodium Phosphate 30 mmol/ (Sodium Chloride) 260 mls @ 42 mls/hr IV.SIG UNSCH PRN PRN Reason: For Phosphorus < 2.5 mg/dL Potassium Chloride (Kcl 40 Meq Premix Inj) 40 meq in 100 mls @ 25 mls/hr IV.SIG UNSCH PRN PRN Reason: For Potassium 3.3 - 3.5 mEq/L Multivitamins 10 ml/ Thiamine HCl 100 mg/ Folic Acid 1 mg/Sodium Chloride 511.2 mls @ 125 mls/hr IV.SIG Q24H [facility] Stop: 06/01/18 20:06 Last Infusion: 05/30/18 21:41 Dose: Infused Insulin Aspart (Novolog Insulin Correctional Sugar Inj) 0 unit SQ Q6HR [facility]; Protocol Last Admin: 05/31/18 11:51 Dose: Not Given Lactulose (Lactulose Liq) 30 ml PO DAILY PRN PRN Reason: SEVERE CONSITIPATION Magnesium Oxide (Mag-Ox) 800 mg PO UNSCH PRN PRN Reason: For Magnesium 1.2 - 1.6 mg/dL Ondansetron HCl (Zofran Inj) 4 mg IV.PUSH Q6H PRN PRN Reason: NAUSEA OR VOMITING Potassium Bicarb/Potassium Chloride (K-Lyte Cl Eff) 50 meq PO UNSCH PRN PRN Reason: For Potassium 3.3 - 3.5 mEq/L Potassium Phosphate (K-Phos Original) 2,000 mg PO Q4H PRN PRN Reason: Phosphorus Less Than 2.5 mg/dL Potassium Phosphate (K-Phos Original) 2,000 mg PO UNSCH PRN PRN Reason: SEE LABEL COMMENTS Senna/Docusate Sodium (Kim-Colace) 1 tab PO BID [facility] Last Admin: 05/31/18 09:26 Dose: 1 tab Sennosides (Senokot) 17.2 mg PO Q12H PRN PRN Reason: Moderate Constipation Sodium Chloride (Ns Flush) 2 ml IV.FLUSH BID [facility] Last Admin: 05/31/18 09:26 Dose: 2 ml Sodium Chloride (Ns Flush) 2 ml IV.FLUSH UNSCH PRN PRN Reason: FLUSH AFTER USING IV ACCESS Allergies Allergy/AdvReac Type Severity Reaction Status Date / Time ketorolac [From Toradol] Allergy Anaphylaxis Verified 05/30/18 11:52 Home Medications Medication Instructions Recorded Confirmed Type quetiapine [Seroquel] 200 mg PO BID 05/30/18 05/30/18 History Exam Vital signs: Vital Signs 05/30/18 14:26 05/30/18 15:00 05/30/18 16:04 Temperature Pulse Rate 59 L 73 Respiratory Rate 12 19 Blood Pressure 118/73 123/82 Pulse Oximetry 100 100 100 05/30/18 16:25 05/30/18 18:00 05/30/18 19:00 Temperature 97.8 F 98.2 F Pulse Rate 75 62 62 Respiratory Rate 18 16 17 Blood Pressure 120/84 117/68 123/74 Pulse Oximetry 100 100 100 05/30/18 20:00 05/30/18 21:00 05/30/18 21:53 Temperature 97.5 F L Pulse Rate 66 66 Respiratory Rate 18 16 Blood Pressure 150/91 H 123/76 Pulse Oximetry 100 100 100 05/30/18 22:00 05/30/18 23:00 05/31/18 00:00 Temperature 99.1 F Pulse Rate 65 64 71 Respiratory Rate 17 16 18 Blood Pressure 148/80 H 111/84 136/78 Pulse Oximetry 100 100 100 05/31/18 01:00 05/31/18 02:00 05/31/18 03:00 Temperature Pulse Rate 69 70 83 Respiratory Rate 16 15 17 Blood Pressure 131/70 147/93 H 140/81 Pulse Oximetry 100 98 100 05/31/18 04:00 05/31/18 05:00 05/31/18 06:00 Temperature 98.6 F Pulse Rate 84 70 59 L Respiratory Rate 22 22 18 Blood Pressure 142/82 H 138/87 121/81 Pulse Oximetry 100 100 100 05/31/18 07:00 05/31/18 08:00 05/31/18 09:00 Temperature 97.1 F L Pulse Rate 60 62 61 Respiratory Rate 18 17 Blood Pressure 124/84 117/75 Pulse Oximetry 100 99 05/31/18 12:00 05/31/18 13:00 Temperature 98.0 F Pulse Rate 64 66 Respiratory Rate 18 18 Blood Pressure 114/64 116/61 Pulse Oximetry 98 97 Intake & Output 09/09/18 09/10/18 09/10/18 18:59 06:59 18:59 Intake Total 2991.2 / 2991.2 1000 / 1000 Output Total 300 / 300 400 / 400 Balance -300 / -300 2591.2 / 2591.2 1000 / 1000 Weight 54.431 kg Intake: IV 2511.2 / 2511.2 1000 / 1000 NS + KCl 20 mEq Inj 1,000 ML @ 1000 / 1000 1000 / 1000 100 mls/hr IV.CONT .Q10H [facility] Rx #:[id number] LR 1000 mL Inj 1,000 ML @ Wide 1000 / 1000 Open IV.SIG BOLUS ONE Rx#: [id number] MVI-12 Inj 10 ML Thiamine Inj 511.2 / 511.2 100 MG Folvite Inj 1 MG In NS Inj 500 ML @ 125 mls/hr IV.SIG Q24H [facility] Rx#:[id number] Oral 480 / 480 Output: Urine 300 / 300 400 / 400 Other: # Voids 1 # Bowel Movements 0 Narrative: On psychiatric evaluation today the patient presents guarded, superficially cooperative, oddly related, minimizing recent suicidal attempt and symptoms of depression. He also reports auditory hallucinations, but refuses to open up about the content of this perceptual disturbances. He has an extensive psychiatric history of schizophrenia, substance abuse including methamphetamines , cocaine, benzodiazepines, previous suicidal attempts, noncompliant with medications. At this moment given his recent suicide attempt and symptoms of psychosis the patient has an elevated risk of danger to self. Patient would be admitted in psychiatry for stabilization and safety. Hold psychotropics until the patient is more medically stable. I will order lithium levels. Patient will be transferred to psychiatry was medically appropriate. Brief supportive psychotherapy provided. I will follow-up. - Constitutional no acute distress - Routine HEENT Exam Head: Present: normocephalic Eye: Present: EOMI, PERRL ENT: Present: mucous membranes moist Assessment and Plan - Plan Plan: Estimated LOS: [] days Justification for Continued Inpatient Stay: Psychiatric admission is indicated.
[2018-05-31] MEDS: Enoxaparin Inj 40 MG/0.4 ML Syringe SQ SCH (15:30)
--- NOTE | 2018-05-31 16:13 | ECG ---
Date Performed: 05/30/2018 Time Performed: 12:01:32 PTAGE: 33 years EKG: Sinus rhythm NORMAL ECG NO PREVIOUS TRACING DOCTOR: Anthony Gilmore Interpretating Date/Time 05/31/2018 16:11:57
[2018-05-31] MEDS: Multivitamin Inj 10 ML, Thiamine Inj 100 MG, Folic Acid Inj 1 MG in Sodium Chlor 0.9% I... IV.SIG SCH (16:37)
[2018-06-01] MEDS: Insulin NovoLOG Aspart Correctional Sugar Inj SQ SCH ×2 (03:53→07:07)
[2018-06-01] MEDS: Chlorhexidine Gluconate 2% 1 Pack (2 Cloths) TOPICAL SCH (05:44)
[2018-06-01] MEDS: Famotidine PF Inj 20 MG/2 ML Vial IV.PUSH SCH (10:17)
[2018-06-01] MEDS: Senna/Docusate Sodium 8.6/50 MG Tablet PO SCH (10:17)
--- NOTE | 2018-06-01 11:00 | P.PN ---
Subjective Interval history: In bed appears in nad Ambulating in the room says without problems Sattign well on room air No suicidal ideation at this ambulating in the room without any problems. No fever or chills. No chest pain Physical Exam Vital signs: Vital Signs 05/31/18 12:00 05/31/18 13:00 05/31/18 14:00 Temperature 98.0 F Pulse Rate 64 66 68 Respiratory Rate 18 18 Blood Pressure 114/64 116/61 Pulse Oximetry 98 97 05/31/18 15:00 05/31/18 16:00 05/31/18 18:00 Temperature 97.8 F Pulse Rate 77 74 67 Respiratory Rate 16 16 Blood Pressure 158/88 H Pulse Oximetry 98 98 05/31/18 19:06 05/31/18 20:00 06/01/18 00:39 Temperature 97.4 F L 98.2 F Pulse Rate 62 77 Respiratory Rate 18 18 Blood Pressure 126/90 133/72 Pulse Oximetry 99 99 96 06/01/18 05:14 06/01/18 08:00 06/01/18 09:00 Temperature 97.7 F 97.6 F 97.6 F Pulse Rate 75 67 67 Respiratory Rate 18 18 18 Blood Pressure 132/87 124/79 124/79 Pulse Oximetry 99 99 99 Intake & Output 05/31/18 06/01/18 06/01/18 18:59 06:59 18:59 Intake Total 1000 / 1000 1871.2 / 1871.2 1000 / 1000 Output Total 400 / 400 1000 / 1000 Balance 600 / 600 871.2 / 871.2 1000 / 1000 Intake: IV 1000 / 1000 1511.2 / 1511.2 1000 / 1000 NS + KCl 20 mEq Inj 1,000 ML @ 1000 / 1000 1000 / 1000 1000 / 1000 100 mls/hr IV.CONT .Q10H [facility] Rx #:[id number] MVI-12 Inj 10 ML Thiamine Inj 511.2 / 511.2 100 MG Folvite Inj 1 MG In NS Inj 500 ML @ 125 mls/hr IV.SIG Q24H [facility] Rx#:[id number] Oral 360 / 360 Output: Urine 400 / 400 1000 / 1000 Other: Date of Last Bowel Movement 05/30/18 # Bowel Movements 0 0 Narrative: GENERAL: 33 yo m in [facility] SKIN: Warm and dry. HEAD: Atraumatic. Normocephalic. EYES: Pupils equal and round. No scleral icterus. No injection or drainage. ENT: No nasal bleeding or discharge. Mucous membranes pink and moist. NECK: Trachea midline. No JVD. CARDIOVASCULAR: Regular rate and rhythm. RESPIRATORY: No accessory muscle use. Clear to auscultation. Breath sounds equal bilaterally. GASTROINTESTINAL: Abdomen soft, non-tender, nondistended. Hepatic and splenic margins not palpable. MUSCULOSKELETAL: Extremities without clubbing, cyanosis, or edema. No obvious deformities. NEUROLOGICAL: Awake and alert. No obvious cranial nerve deficits. Motor grossly within normal limits. Five out of 5 muscle strength in the arms and legs. Normal speech. PSYCHIATRIC: Appropriate mood and affect; insight and judgment normal. Results - Labs CBC & Chem 7: 05/31/18 06:10 05/31/18 06:10 Laboratory Results - last 24 hr 05/31/18 05/31/18 06/01/18 11:50 19:42 03:49 POC Glucose 120 [address] Less than 0.1 L 06/01/18 07:06 POC Glucose [address] Assessment and Plan - Plan Neuro/Psych: Quetiapine overdose History of schizophrenia/bipolar type I History of migraine headache [place] act and enforced and psychiatry consultation Acetaminophen 650 mg p.o. every 6 hours as needed fever Holding quetiapine 200 mg twice daily/home medication-await psych recommendations Patient meets inpatient criteria for psychiatry. Medically he is stable and clear for discharge. Discharged to inpatient psychiatry unit. CV: Currently on normal saline with 20 mEq of KCl at 84 cc an hour Not requiring vasopressors and/or antihypertensives Monitor serial EKGs Resp: History of prior tobaccoism Nasal cannula to maintain saturations greater than equal 90% Incentive spirometry while awake Albuterol aerosols every 2 hours as needed dyspnea Head of bed at 30. Strict aspiration precautions GI: Advance diet as tolerated Famotidine for GI prophylaxis Docusate sodium/senna 1 tablet twice daily for bowel regimen Endo: Sliding scale insulin Accu-Cheks to maintain euglycemia/aspart insulin low regimen every 6 hours Renal: Creatinine currently within normal limits Monitor urine output Accurate i's and O's Heme: Normocytic anemia Monitor CBC daily. Follow trends ID: Monitor for signs and symptomatology of infection FEN: Replace electrolytes as clinically indicated Access: -Utilize peripheral IV. Central line if indicated Prophylaxis -GI -pantoprazole -DVT -enoxaparin Code Status: Full Discussed Condition With: Patient and RN The patient is cleared medically for discharge. Seen by psychiatry. Recommends inpatient admission to psychiatry unit. Discharge patient to inpatient psychiatry unit.
--- NOTE | 2018-06-01 11:32 | P.DS ---
Date of admission: 05/30/18 14:39 Primary care physician: UNKNOWN Brief History from admission: This is a 33-year-old male. Date of admission 05/30/2018. Past medical history includes migraine headache, chronic low back pain/sciatica, history of benzodiazepine use and history of IV drug use 2008. He is brought in to [facility] ED under police Sanabria act. He presumably took an intentional overdose of Quetiapine. ED physician was told that he posted an Internet picture of himself holding the bottle of Seroquel and making suicidal overtones. His found him later minimally responsive. She called paramedics. He arrives very sedated. He is not able to provide any useful history or review of systems with a GCS of 10 CT brain revealed no acute intracranial findings. Patient has a gag and protecting airway. Based on laboratory essentially negative. Urine drug screen currently pending. We are asked to admit the patient observation. He is under Sanabria act and psychiatry consult when appropriate DS: Diagnosis - Discharge Diagnosis (1) Overdose Status: Acute DS: Summary Hospital Course: Quetiapine overdose History of schizophrenia/bipolar type I History of migraine headache Sanabria act and enforced and psychiatry consultation Acetaminophen 650 mg p.o. every 6 hours as needed fever Holding quetiapine 200 mg twice daily/home medication-await psych recommendations Patient meets inpatient criteria for psychiatry. Medically he is stable and clear for discharge. Discharged to inpatient psychiatry unit. CV: Currently on normal saline with 20 mEq of KCl at 84 cc an hour Not requiring vasopressors and/or antihypertensives Monitor serial EKGs Resp: History of prior tobaccoism Nasal cannula to maintain saturations greater than equal 90% Incentive spirometry while awake Albuterol aerosols every 2 hours as needed dyspnea Head of bed at 30. Strict aspiration precautions GI: Advance diet as tolerated Famotidine for GI prophylaxis Docusate sodium/senna 1 tablet twice daily for bowel regimen Endo: Sliding scale insulin Accu-Cheks to maintain euglycemia/aspart insulin low regimen every 6 hours Renal: Creatinine currently within normal limits Monitor urine output Accurate i's and O's Heme: Normocytic anemia Monitor CBC daily. Follow trends ID: Monitor for signs and symptomatology of infection FEN: Replace electrolytes as clinically indicated Access: -Utilize peripheral IV. Central line if indicated Prophylaxis -GI -pantoprazole -DVT -enoxaparin Code Status: Full Discussed Condition With: Patient and RN The patient is cleared medically for discharge. Seen by psychiatry. Recommends inpatient admission to psychiatry unit. Discharge patient to inpatient psychiatry unit. - Time Spent with Patient Total time spent providing and/or coordinating discharge services: Greater than 30 minutes - Quality: VTE Deep Vein Thrombosis/Pulmonary Embolism Present on Admission: No Exam Vital signs: Vital Signs 05/31/18 12:00 05/31/18 13:00 05/31/18 14:00 Temperature 98.0 F Pulse Rate 64 66 68 Respiratory Rate 18 18 Blood Pressure 114/64 116/61 Pulse Oximetry 98 97 05/31/18 15:00 05/31/18 16:00 05/31/18 18:00 Temperature 97.8 F Pulse Rate 77 74 67 Respiratory Rate 16 16 Blood Pressure 158/88 H Pulse Oximetry 98 98 05/31/18 19:06 05/31/18 20:00 06/01/18 00:39 Temperature 97.4 F L 98.2 F Pulse Rate 62 77 Respiratory Rate 18 18 Blood Pressure 126/90 133/72 Pulse Oximetry 99 99 96 06/01/18 05:14 06/01/18 08:00 06/01/18 09:00 Temperature 97.7 F 97.6 F 97.6 F Pulse Rate 75 67 67 Respiratory Rate 18 18 18 Blood Pressure 132/87 124/79 124/79 Pulse Oximetry 99 99 99 06/01/18 11:25 Temperature Pulse Rate Respiratory Rate Blood Pressure Pulse Oximetry 95 Intake & Output 05/31/18 06/01/18 06/01/18 18:59 06:59 18:59 Intake Total 1000 / 1000 1871.2 / 1871.2 1000 / 1000 Output Total 400 / 400 1000 / 1000 Balance 600 / 600 871.2 / 871.2 1000 / 1000 Intake: IV 1000 / 1000 1511.2 / 1511.2 1000 / 1000 NS + KCl 20 mEq Inj 1,000 ML @ 1000 / 1000 1000 / 1000 1000 / 1000 100 mls/hr IV.CONT .Q10H DEMETRIA Rx #:[id number] MVI-12 Inj 10 ML Thiamine Inj 511.2 / 511.2 100 MG Folvite Inj 1 MG In NS Inj 500 ML @ 125 mls/hr IV.SIG Q24H DEMETRIA Rx#:[id number] Oral 360 / 360 Output: Urine 400 / 400 1000 / 1000 Other: Date of Last Bowel Movement 05/30/18 # Bowel Movements 0 0 Narrative: GENERAL: In nad. SKIN: Warm and dry. HEAD: Normocephalic. EYES: No scleral icterus. No injection or drainage. NECK: Supple, trachea midline. No JVD or lymphadenopathy. CARDIOVASCULAR: Regular rate and rhythm without murmurs, gallops, or rubs. RESPIRATORY: Breath sounds equal bilaterally. No accessory muscle use. GASTROINTESTINAL: Abdomen soft, non-tender, nondistended. MUSCULOSKELETAL: No cyanosis, or edema. BACK: Nontender without obvious deformity. No CVA tenderness. Results Procedures completed during hospitalization: none Labs on day of discharge: Labs from last 24 hours 06/01/18 06/01/18 05/31/18 07:06 03:49 19:42 POC Glucose 76 92 [place] Less than 0.1 L 05/31/18 11:50 POC Glucose 120 H [place] - Impressions ITS Impressions Head CT 05/30/18 12:00 CONCLUSION: 1. Negative CT Head non contrast. . Discharge Plan - Discharge Disposition Patient Disposition: 65 Disc To [facility] Facility - Discharge Condition Condition: Stable - Discharge Order Discharge Orders: Discharge Order (Routine); Ordered 06/01/18 Ordered By: Miriam Langley - Discharge Details Anticipated Discharge Date: 06/01/18 - Physicians Team Primary Care Provider: UNKNOWN, Attending Provider: Miriam Langley Other Providers: Rosas Acuna MD
== END 2018-06-01 16:19 ==
LOC: NEPE 11:45 → NEDA 14:39 → HIMC 16:56 → N06 05-31 23:04
PROVIDERS: ADMIT Hospitalist; ATTEND Hospitalist

== ENCOUNTER 2018-06-01 16:31 | Inpatient (IN) ==
[2018-06-01] MEDS ORDERED: Aluminum/Magnesium/Simethacone Susp 30 ML UDC PO PRN (16:59)
[2018-06-01] MEDS ORDERED: Acetaminophen 325 MG Tablet PO PRN (16:59)
[2018-06-01] MEDS ORDERED: Melatonin 5 MG Tablet PO PRN (16:59)
[2018-06-02 07:26] LABS: Baso # (Auto) 0.1 th/mm3 (0.0-0.2); Baso % (Auto) 1.1 % (0.0-2.0); Eos # (Auto) 0.2 th/mm3 (0.0-0.4); Eos % (Auto) 3.6 % (0.0-4.0); Hematocrit 37.5 % (39.0-51.0); Hemoglobin 12.7 gm/dL (13.0-17.0); Lymph # (Auto) 1.8 th/mm3 (1.0-4.8); Lymph % (Auto) 30.6 % (9.0-44.0); Mean Corpuscular HGB Conc 33.9 % (32.0-36.0); Mean Corpuscular Hemoglobin 31.2 pg (27.0-34.0); Mean Corpuscular Volume 92.2 fL (80.0-100.0); Mean Platelet Volume 9.4 fL (7.0-11.0); Mono # (Auto) 0.3 th/mm3 (0.0-0.9); Mono % (Auto) 4.8 % (0.0-8.0); Neut # (Auto) 3.4 th/mm3 (1.8-7.7); Neut % (Auto) 59.9 % (16.0-70.0); Platelet Count 265 th/mm3 (150-450); Red Blood Count 4.07 mil/mm3 (4.50-5.90); Red Cell Distribution Width 13.5 % (11.6-17.2); White Blood Count 5.7 th/mm3 (4.0-11.0)
[2018-06-02 07:46] LABS: Albumin 2.9 g/dL (3.4-5.0); Anion Gap 7 meq/L (5-15); Aspartate Aminotransferase 24 U/L (15-37); Blood Urea Nitrogen 9 mg/dL (7-18); Calcium 8.3 mg/dL (8.5-10.1); Carbon Dioxide 26.4 meq/L (21.0-32.0); Chloride 107 meq/L (98-107); Cholesterol 120 mg/dL (120-200); Glomerular Filtration Rate Greater Than 89 mL/min (>89); Glucose,Random 80 mg/dL (74-106); Potassium 4.4 meq/L (3.5-5.1); Sodium 140 meq/L (136-145); Triglycerides 109 mg/dL (42-150)
[2018-06-02 07:58] LABS: Alanine Aminotransferase 27 U/L (12-78); Alkaline Phosphatase 78 U/L (45-117); Chol/HDL Ratio 3.42 Ratio; Free T4 (Free Thyroxine) 0.99 ng/dL (0.76-1.46); LDL Cholesterol,Calculated 63 mg/dL (0-99); Total Protein 6.5 g/dL (6.4-8.2)
--- NOTE | 2018-06-02 09:59 | P.HPPSY ---
Provisional Diagnosis Admission Date: June 01, 2018 16:31 Landis I.: 1. Adjustment disorder with mixed disturbance of emotions and conduct, resolved 2. Schizophrenia, presently stable 3. Polysubstance abuse Landis II.: Deferred Competence Certification of Person's Competence To Provide Express and Informed Consent I have personally examined Avelino Rankin JR, a person being served at [facility] on, June 02, 2018 0959. Express and informed consent means consent voluntarily given in writing, by a competent person, after sufficient explanation and disclosure of the subject matter involved to enable the person to make a knowing and willful decision without any element of force, fraud, deceit, duress, or other form of constraint or coercion. This person is 18 years of age or older, is not now known to be incompetent to consent to treatment with a guardian advocate, and does not have a health care surrogate or proxy currently making medical treatment decisions. I have found this person to be one of the following: [] Competent to provide express and informed consent, as defined above, for voluntary admission to this facility and is competent to provide express and informed consent for treatment. He/she has the consistent capacity to make well reasoned, willful, and knowing decisions concerning his or her medical or mental health treatment. The person fully and consistently understands the purpose of the admission for examination/placement and is fully capable of personally exercising all rights assured [place] Incompetent to provide express and informed consent to voluntary admission, and this is incompetent to provide express and informed consent to treatment. The person must be transferred to involuntary status and a petition for a guardian advocate filed with the Circuit Court. [X] Refusing to provide express and informed consent to voluntary admission but is competent to provide express and informed consent for treatment. The person must be discharged or transferred to involuntary status. Form shall be completed within 24 hours of a person's arrival at the receiving facility and filed in the clinical record of each person: 1. Admitted on a voluntary basis 2. Permitted to provide express and informed consent to his/her own treatment 3. Allowed to transfer from involuntary to voluntary status 4. Prior to permitting a person to consent to his or her own treatment after having been previously found incompetent to consent to treatment. History of Present Illness Capacity: Has capacity Chief Complaint: Overdose History of Present Illness: Mr. Rankin is a 33-year-old male with a history of schizophrenia who presents in transfer from the medical floor after he presented following an overdose. Patient was seen in consultation on the medical floor by Dr. Jacobson, and I have reviewed his documentation. Reviewing the electronic medical record, I see no previous psychiatric contact within our system. Patient seen and examined with nurse. Chart reviewed. Case discussed with nursing staff. No behavioral issues noted overnight. No evidence of any suicidality or homicidality on the inpatient unit. On my examination today, the patient says that he took "one too many Seroquel to get attention." He says that he was arguing with his because she was spending too much time on her cell phone and on Facebook. He says that he made his presenting overdose to get her attention. He denies that there is any genuine suicidal intent in this overdose. He notes that 's cell phone has been disconnected and so this is no longer an issue. He denies any suicidal or homicidal ideation , intent or plan at this time. He endorses chronic auditory hallucinations like background noise in a restaurant. He says that these mumbling voices are always present and indistinct except when his psychosis is decompensated, which it presently is not. He denies any command auditory hallucinations to hurt self or others. I can elicit no delusional material. I can elicit no hypomanic or manic or depressive symptoms. The remainder of the psychiatric ROS is negative. No acute physical complaints. Patient is requesting discharge from the inpatient unit today. Past psychiatric history: The patient reports a history of schizophrenia. [facility]. He reports that he was psychiatrically admitted 3 years ago secondary to worsening of his auditory hallucinations. He denies a history of previous suicide attempts, although Dr. Jacobson had documented 1 previous suicide attempt. Family history: The patient reports that his father and brother has schizophrenia. He denies a family history of suicide. Chemical dependency history: The patient admits to use of methamphetamine. He can provide no explanation for the cocaine found in his urine. He denies any use of alcohol, benzodiazepines or opiates. Social history: The patient lives at home with his and 2 children. He also has a pet cat who recently had a litter of kittens. He is high school educated. He is on disability. Denies any history. Denies any legal history. Denies any access to guns or firearms. He is a [employer]. Denies any history of abuse or mistreatment. With the patient's permission I have obtained collateral information from his Rubia Rankin at [phone]. Ms. Rankin is reportedly comfortable with the patient returning home today. She notes that she has secured the patient's medications and I have further recommended that she secure the home of other potential means of harm to self/others including but not limited to knives and guns. I have also educated to have patient returned to the ED for any concerning psychiatric symptoms either by voluntary psychiatric evaluation, San[place]ria act or ex-parte. We also discussed the act for the patient's substance use issues. - Inpatient Certification Plans for Post Hospital Care: Home Review of Systems All other systems reviewed negative except as stated in HPI [facility] - History History Provided By: Patient - Medical History Medical History: Medical History (Last Reviewed 05/31/18 @ 08:22 by Merissa Joy Developer Evangelist, [employer]) Bipolar 1 disorder Chronic low back pain History of migraine headaches Schizo affective schizophrenia Surgical history unknown - Surgical History Surgical History: Surgical History (Last Reviewed 05/31/18 @ 08:22 by Ian Raymond) Stress fracture, right finger(s), subsequent encounter for fracture with routine healing (Acute) - Family History Family History: Family History (Last Updated 05/30/18 @ 14:43 by Ge Burton MD) Other Unknown family medical history - Tobacco History Second Hand Smoke Exposure: Yes Tobacco Use In Past 30 Days: Yes Smoking Status: Current every day smoker Tobacco Type: Cigarettes - Alcohol History How Often Do You Have a Drink Containing Alcohol: Monthly or less - Substance Use History Substance History: Past History - Substance Use Type Amphetamines Status: Sustained Remission Route Used: Intravenously Crack/Cocaine Status: Sustained Remission Route Used: Inhalation Reason for Use: Get High - Immunization History Tetanus Immunization: Unable to Assess Hx Influenza Vaccine This Season: No Quality Measures - Patient Strengths Patient's strengths (minimum of 2): Attending to basic needs. Verbally fluent. Medications and Allergies Active Medications: Active Medications Acetaminophen (Tylenol) 650 mg PO Q4H PRN PRN Reason: Pain 1-5 or Temp >101F Al Hydrox/Mg Hydrox/Simethicone (Mag-Al Plus Susp Liq) 30 ml PO Q6H PRN PRN Reason: DYSPEPSIA Al Hydroxide/Mg Hydroxide (Milk Of Magnesia Liq) 30 ml PO Q12H PRN PRN Reason: Mild Constipation Melatonin (Melatonin) 5 mg PO HS PRN PRN Reason: INSOMNIA Nicotine (Habitrol 21 Mg Patch.24 Hr) 1 patch T-DERMAL DAILY PRN PRN Reason: Nicotine craving Patch Removal (Remove Old Patch) 1 each T-DERMAL DAILY PRN PRN Reason: REMOVE PATCH Allergies Allergy/AdvReac Type Severity Reaction Status Date / Time ketorolac [From Toradol] Allergy Anaphylaxis Verified 05/30/18 11:52 Results - Labs CBC & Chem 7: 06/02/18 06:10 06/02/18 06:10 Labs: Laboratory Results - last 24 hr 06/02/18 06/02/18 06:10 06:10 WBC 5.7 RBC 4.07 L Hgb 12.7 L Hct 37.5 L MCV 92.2 MCH 31.2 MCHC 33.9 RDW 13.5 Plt Count 265 MPV 9.4 Neut % (Auto) 59.9 Lymph % (Auto) 30.6 Dickenson % (Auto) 4.8 Eos % (Auto) 3.6 Baso % (Auto) 1.1 Neut # (Auto) 3.4 Lymph # (Auto) 1.8 Dickenson # (Auto) 0.3 Eos # (Auto) 0.2 Baso # (Auto) 0.1 WBC Differential . Differential Comment Auto diff final Sodium 140 Potassium 4.4 D Chloride 107 Carbon Dioxide 26.4 Anion Gap 7 BUN 9 Creatinine 0.93 Estimated GFR Greater than 89 Random Glucose 80 Calcium 8.3 L Total Bilirubin 0.3 AST 24 ALT 27 Alkaline Phosphatase 78 Total Protein 6.5 Albumin 2.9 L Triglycerides 109 Cholesterol 120 LDL Cholesterol, Calc 63 HDL Cholesterol 35.0 L Cholesterol/HDL Ratio 3.42 TSH 1.090 Free T4 0.99 Labs reviewed. Anemia stable. TSH and free T4 within normal limits. Exam Vital signs: Vital Signs 06/01/18 17:27 06/02/18 06:36 Temperature 97.8 F 97.9 F Pulse Rate 80 65 Respiratory Rate 17 17 Blood Pressure 135/92 H 114/71 Pulse Oximetry 99 100 Intake & Output 06/01/18 06/02/18 06/02/18 18:59 06:59 18:59 Weight 66.9 kg Other: Weight On Admission 66.9 kg Narrative: Physical examination was completed by the hospitalist on the medical floor. On my examination today, the patient appears to be in no acute physical distress. No motor abnormalities noted. No signs of intoxication or withdrawal noted. Labs and vital signs reviewed. Mental Status Examination Appearance: Appropriate Consciousness: Alert Orientation: x4 Motor Activity: Normal gait Speech: Unremarkable Language: Adequate Fund of Knowledge: Adequate Attention and Concentration: Adequate Memory: Unremarkable (Grossly intact on clinical exam) Mood: Appropriate Affect: Appropriate Thought Process & Associations: Intact, Logical, Goal directed, Linear Thought Content: Appropriate Hallucination Type: Auditory (Chronic, noncommand, like background noise in a restaurant, no worse than usual) Delusion Type: None Suicidal Ideation: No Suicidal Plan: No Suicidal Intention: No Homicidal Ideation: No Homicidal Plan: No Homicidal Intention: No Mental Status Exam Remarks: Insight and judgment are likely chronically fair to poor. Assessment and Plan - Assessment (1) Adjustment disorder with mixed disturbance of emotions and conduct Code(s): F43.25 - Adjustment disorder with mixed disturbance of emotions and conduct Status: Acute (2) Schizophrenia in remission Code(s): F20.9 - Schizophrenia, unspecified Status: Acute (3) Polysubstance abuse Code(s): F19.10 - Other psychoactive substance abuse, uncomplicated Status: Acute - Plan Plan: This is a 33-year-old male with psychiatric history as detailed above who presents in transfer from medical floor under a San[place]ria act. On my evaluation today, the patient denies any ongoing suicidal ideation or homicidal ideation. He does report some chronic, noncommand, indistinct auditory hallucinations but otherwise there is no evidence of mood, anxiety or psychotic disorder in this patient at this time. He says that he made his presenting overdose to get his 's attention. There is no evidence of self-care deficit as a consequence of mental illness. I have obtained collateral information from the patient's to the effect that she is comfortable with him returning home today. The patient is requesting discharge from the inpatient psychiatric unit today. Synthesizing the available evidence and weighing the appropriate factors I x ray service engineer that the patient does not meet criteria for involuntary psychiatric hospitalization. He is requesting discharge from the inpatient psychiatric unit , and I have no basis to retain him over his objection, although I have recommended that he remain for observation. I will discharge him AGAINST MEDICAL ADVICE. Psychiatric follow-up as arranged by counselor. Patient is to resume prior to admission psychotropic regimen, and he reports he has an adequate supply of medications at home. Patient is also to follow up with primary care. I have counseled the patient to abstain from substances of abuse ; he says that he plans to follow up with Narcotics Anonymous and Sohan Recio for this. I have counseled the patient regarding warning signs for need to return to the psychiatric emergency room as part of a general safety plan. Patient is to resume his prior to admission psychotropic regimen and I have provided him no prescriptions on discharge today. This note serves also has my discharge summary. Justification for Continued Inpatient Stay: N/A. Request Healthcare Surrogate/Guardian Advocate?: No
[2018-06-02 17:14] LABS: Hemoglobin A1c 5.5 % (4.3-6.0)
== END 2018-06-02 12:35 | disposition left against medical advice (07) ==
LOC: H270 16:31
PROVIDERS: ADMIT Psychiatry & Neurology Psychiatry; ATTEND Psychiatry & Neurology Psychiatry